=== PATIENT | male | born 1960 | race Caucasian/White ===

== ENCOUNTER 2016-09-14 19:53 | Observation (INO) ==
[2016-09-14] MEDS ORDERED: ASPIRIN PO STA (20:02)
[2016-09-14 20:49] LABS: MANUAL DIFF NEEDED? NO
[2016-09-14 20:52] LABS: BASO% 0.3 % (0.0-0.8); EOS% 0.9 % (0.0-10.0); HEMATOCRIT 45.4 % (42.0-52.0); HEMOGLOBIN 15.6 g/dL (14.0-18.0); IMM GRAN# 0.03 X1000 (0.0-0.04); IMM GRAN% 0.3 % (0.0-0.5); LYMPH# 1.12 X1000 (1.2-3.4); LYMPH% 9.7 % (20.5-51.1); MCH 26.6 PG (27-31); MCHC 34.4 g/dL (33-37); MCV 77.3 FL (81-99); MONO# 0.94 X1000 (0.11-0.59); MONO% 8.1 % (1.7-9.3); MPV 9.2 FL (7.4-10.4); NEUT% 80.7 % (42.2-75.2); PLT 263 X1000 (130-400); RBC 5.87 XMIL (4.7-6.1)
[2016-09-14 21:00] LABS: INR 1.08; PROTIME 11.4 Seconds (9.2-11.7); PTT 26.7 Seconds (22.0-36.0)
[2016-09-14 21:17] LABS: AGAP 21; ALBUMIN 4.5 g/dL (3.5-5.0); ALKALINE PHOSPHATASE 88 U/L (32-122); BUN 23 mg/dL (8-22); CALCIUM 10.5 mg/dL (8.8-10.2); CHLORIDE 101 mmol/L (98-107); CK PROFILE 203 U/L (24-204); COSMO 290; GOT 23 U/L (10-34); GPT 31 U/L (10-44); MAGNESIUM 1.6 mg/dL (1.5-2.7); POTASSIUM 4.3 mmol/L (3.5-5.1); SODIUM 141 mmol/L (136-145); TCO2 19 mmol/L (25-35); TOTAL BILIRUBIN 0.64 mg/dL (0.20-1.00); TOTAL PROTEIN 7.6 g/dL (6.3-8.3)
[2016-09-14 22:49] LABS: ALLEN TEST YES; BE 2.4 mmoll (-3.0-3.0); BLOOD TYPE ARTERIAL; DRAW SITE R RADIAL; METHB 1.6 % (0.0-1.5); MODALITY ROOM AIR; O2(CT) 21.7 mL/dL (15.0-23.0); PCO2(98.6) 23 mmHg (35-45); PO2(98.6) 89 mmHg (60-100); SAMPLE BLOOD
[2016-09-14 22:51] LABS: pH(98.6) 7.59 (7.35-7.45)
[2016-09-14] MEDS ORDERED: NS 1,000 ML IV ONE (23:46)
[2016-09-14] MEDS ORDERED: G.I. COCKTAIL PO ONE (23:46)
[2016-09-14] MEDS ORDERED: DUONEB (A & A) INH ONE (23:48)
[2016-09-15] MEDS ORDERED: TYLENOL PO PRN (01:14)
[2016-09-15] MEDS ORDERED: ZOFRAN IV PRN (01:14)
[2016-09-15] MEDS ORDERED: DUONEB (A & A) INH PRN (01:14)
[2016-09-15 02:15] LABS: HEMOGLOBIN A1C 9.5 % (4.8-6.0)
--- NOTE | 2016-09-15 02:16 | HISTORY AND PHYSICAL ---
PRIMARY CARE PHYSICIAN: Darrick Redmond MD REASON FOR ADMISSION: One-day history of dyspnea, palpitations, lightheadedness. HISTORY OF PRESENT ILLNESS: Mr. Holder is a 56-year-old male with past medical history of coronary artery disease, type 2 diabetes, hypertension, sleep apnea on chronic CPAP, reflux disease, who comes in today complaining of sudden shortness of breath, generalized fatigue, nausea about 2 hours after spraying his yard with weed killer. He says when got in he felt profoundly diaphoretic and he felt palpitations, lightheadedness while resting. He then took a shower, felt better. A few hours later, he went fishing and the same symptoms occurred while he was fishing. These symptoms included nausea, palpitations, lightheadedness, and chest fullness, he says. The chest fullness is not consistent with the chest discomfort he had when he had his IA 5 years ago. When he came home, the symptoms abated for while only to return for the 3rd time and decided to get this checked out. About a week ago, he and his traveled a long distance ride to [place]. He denies any redness or new onset swelling of his lower extremities since their arrival. He denies any sharp pleuritic chest pain. He denies any cough, fever, or chills. No GI symptoms other than 3 loose stools which he has experienced today and the aforementioned nausea, but no vomiting. No abdominal pain. No genitourinary complaints. No neurological complaints. Since he has been here in our ER, he still has generalized weakness. REVIEW OF SYSTEMS: Twelve system review was done and the positive findings were noted in the HPI. ALLERGIES: No known allergies. HOME MEDICATIONS: 1. Victoza 0.6 mg daily. 2. Aspirin 81 mg daily. 3. Ativan 0.5 mg daily. 4. Cozaar 25 mg daily. 5. Metformin 500 mg b.i.d. 6. Toprol-XL 50 mg daily. 7. Protonix 40 mg daily. He reports that he just started taking the metformin and Victoza 3 weeks ago, when he was recently diagnosed by Dr. Redmond, who is his primary care physician. SURGICAL HISTORY: 1. Appendectomy. 2. Back surgery. 3. Shoulder surgery. ALLERGIES: None. FAMILY HISTORY: Notable for type 2 diabetes, heart disease in both parents. Ovarian cancer in his mother. PAST MEDICAL HISTORY: 1. CAD. 2. Sleep apnea. SOCIAL HISTORY: Does not smoke, drink, or use illicit drugs. He is . Lives with his . LABORATORY WORK: White count 11,000, hemoglobin and hematocrit 15 and 45, platelets 263,000 with MCV of 77, neutrophils 80%. BUN 23, creatinine 1.0; glucose 187, calcium 10.5, albumin of 4.5. Troponin is negative. CK 203. Magnesium 1.6. D-dimer is surprising at 0.35. PTT is normal. Blood gas, however, has pH 7.6, pCO2 of 23, pO2 of 81, bicarb of 27 on room air. This was done on room air. EKG did not show any acute injury pattern. Chest film is pending for review. PHYSICAL EXAMINATION: VITAL SIGNS: Blood pressure 174/96, heart rate 94, respirations 24, temperature is 97.5 degrees, O2 saturation 99% on room air. GENERAL: He is morbidly obese, pleasant, man, in no acute distress. He is A and O x3. Normal mood and affect. HEENT: Head is normocephalic, atraumatic. Eyes: PERRL, EOMI. He is anicteric and not pale. ENT and oropharynx exam is grossly normal. No pharyngeal exudates or erythema. No visual central cyanosis was noted. CHEST: Patient has decreased entry in both bases with expiratory wheezes bilaterally in the upper lobes. CARDIOVASCULAR: First and second heart sounds heard. No gallops, rubs. Rhythm is regular. ABDOMEN: Protuberant, soft, nontender. No hepatosplenomegaly. Bowel sounds hypoactive. RECTAL: Deferred at this time. EXTREMITIES: Patient has good pulses distally in all extremities. He has trace edema in his lower extremities. No clubbing or peripheral cyanosis noted. NEUROLOGICAL: No focal deficits. SKIN: Intact. No breakdown, lesions, or edema. MUSCULOSKELETAL: Grossly normal. ASSESSMENT: 1. Generalized weakness with palpitations, dyspnea, and findings consistent with respiratory alkalosis in a morbidly obese man who recently traveled. In this patient, despite his normal D-dimer, I still think his pretest probability is at least moderate. He is also tachycardic. I think it would be prudent to still proceed with doing a CT angiogram to rule out BTE. If this is negative then next plan will be to proceed with a stress test, since he has had one greater than 3 years ago. And if all these are negative, he can be discharged. In the interim, we will continue patient's home medications and add on a statin, which he is not on, nitroglycerin paste for symptom relief if it is ischemic. Also, this may also help lower his blood pressure a bit. 2. Patient has type 2 diabetes. We will hold liraglutide and metformin for now. Consult dietitian to start him on a solid foundation regarding his diet. Patient is motivated to want to lose weight and change his diet. Check A1c, continue with sliding scale. 3. Hypertension. Continue his current blood pressure medications, if still elevated consider elevating his Cozaar from 25-50 mg. 4. Coronary artery disease. Continue aspirin, statins, and beta blockers. Stress test pending. 5. Sleep apnea. Patient uses CPAP at all times, bring it from home. 6. Patient has respiratory alkalosis, highly unusual. I think it is probable that he is very anxious, although he does not portray that. Also, patient may have a very large hiatal hernia which could be causing him to have shallow rapid breaths. Hopefully, a CT angiogram will elucidate the etiology of the rest of the respiratory alkalosis. 7. Other measures include deep venous thrombosis prophylaxis pending CT scan report. cc: MD Darrick Enriquez MD
[2016-09-15 02:28] LABS: AGAP 18; BUN 24 mg/dL (8-22); CALCIUM 10.3 mg/dL (8.8-10.2); CHLORIDE 98 mmol/L (98-107); COSMO 287; POTASSIUM 3.9 mmol/L (3.5-5.1); SODIUM 140 mmol/L (136-145); TCO2 24 mmol/L (25-35)
[2016-09-15] MEDS: LIPITOR PO SCH ×2 (03:16→20:30)
[2016-09-15] MEDS: NITROGLYCERIN TOP SCH ×4 (03:18→20:30)
[2016-09-15] MEDS: LOVENOX SUBQ SCH (03:18)
--- NOTE | 2016-09-15 05:24 | EKG Report ---
Test Performed on : 09/14/2016 8:01:14 PM Test Reason : cp Blood Pressure : / mmHG Vent. Rate : 096 BPM Atrial Rate : 096 BPM P-R Int : 172 ms QRS Dur : 088 ms QT Int : 356 ms P-R-T Axes : 056 -16 054 degrees QTc Int : 449 ms Normal sinus rhythm. Inferior infarct (cited on or before 11-SEP-2011) Abnormal ECG When compared with ECG of 11-SEP-2011 13:45, Vent. rate has increased BY 35 BPM T wave inversion no longer evident in Inferior leads Unconfirmed Result
[2016-09-15] MEDS: PRILOSEC PO SCH (06:16)
[2016-09-15] MEDS: HUMALOG SUBQ SCH ×4 (06:16→22:29)
--- NOTE | 2016-09-15 06:28 | Diag Imaging Result Document ---
PROCEDURE NAME: CHEST-2 VIEWS - 09/14/2016 FRONTAL AND LATERAL CHEST, 2 VIEWS: COMPARISON: 09/11/2011. FINDINGS: The lungs are well expanded. The heart is not enlarged. The vessels are not distended. No pneumonia. No pleural effusions. No free air beneath the diaphragm. IMPRESSION: No acute abnormality.
[2016-09-15] MEDS: ATIVAN PO SCH (08:37)
[2016-09-15] MEDS: ASPIRIN PO SCH (08:37)
[2016-09-15] MEDS: COZAAR PO SCH (08:37)
[2016-09-15] MEDS ORDERED: ASPIRIN PO SCH (09:00)
[2016-09-15] MEDS ORDERED: PANTOPRAZOLE SODIUM 40 MG PO SCH (09:00)
--- NOTE | 2016-09-15 12:12 | PROGRESS NOTE ---
DATE: 09/15/2016 SUBJECTIVE: The patient states that his breathing is okay this morning. I reviewed the history and physical, ER notes, laboratories and all other pertinent findings prior to seeing the patient. It is noted that his pulmonary arteriogram was canceled, which I agree with. He is scheduled to have stress test this afternoon. Enzymes were negative times three. I feel that the patient was in a hyperventilatory loop and this caused all of his symptoms. Hopefully, we can rule out heart issues and we can get him home. The patient's diabetes is improved; his last A1c in the office was 10.1, and he was started on new therapy. He has lost more than 10 pounds over the last month. His appetite is much better. It was also commented in the H and P that the patient was not on a statin drug. The patient has been tried on multiple statin drugs and keeps taking himself off of them because they "bother him." I think he refers to sore joints and muscles, but on his last office visit I gave him samples of Livalo to try, and he again took this for a few days and then quit. So, attempts have been made at a statin drug, but given his coronary history unfortunately the patient is not compliant with that. The patient is scheduled for stress testing this afternoon. I hope to have him discharged either tonight or tomorrow based on those findings. cc: Darrick Redmond MD
[2016-09-15] MEDS ORDERED: LEXISCAN ONE (12:30)
--- NOTE | 2016-09-15 12:55 | ECHO REPORT ---
ORDER DATE: 09/15/2016 MEASUREMENTS: 1. Interventricular septum 1.3. 2. Left ventricular posterior wall 1.3. 3. Diastolic diameter 4.9. 4. Left atrium 4.7. 5. Aorta 3.3. SUMMARY OF 2-D IMAGIN. Normal left ventricular cavity size. Mild left ventricular hypertrophy. Estimated ejection fraction of 65%. 2. Aortic valve leaflets are trileaflet. Mitral valve was normal. Tricuspid valve was normal. Pulmonic valve was normal. 3. Peak velocity across the aortic valve less than 2 m/sec. There is no aortic stenosis or regurgitation. There is trace mitral regurgitation. Trace tricuspid regurgitation. Trace pulmonary regurgitation. Peak velocity across the tricuspid valve was less than 2 m/sec. 4. There is no pericardial effusion or obvious intracardiac mass or thrombus seen. cc: MD Mimi Kyle PA Timothy P. Weirich, MD
--- NOTE | 2016-09-15 13:16 | CONSULTATION ---
DATE OF CONSULTATION: 09/15/2016 INDICATION: Dyspnea. Lightheadedness. HISTORY OF PRESENT ILLNESS: Ms. Holder is a 56-year-old white male with a history of coronary disease with previous PCI. Last seen by Dr. Castillo I believe 2-3 years ago. Yesterday he woke up in his usual state of health. He did some light yard work including his spraying his yard with a pre emergent and post emergent herbicide. He did this via a using a backpack sprayer and did 4 courses of 4 gallons apiece via the backpack sprayer. He thinks that he did okay with this level of activity and does not think that he had any sort of significant exposure. Upon cleaning out the tank he tried to get up but got quite weak and became very short of breath. He recovered after several minutes and decided to go out and do some fishing. Again after he came back in he felt very lightheaded, dizzy, and had some episodic shortness of breath. None of these seemed to be exertional in nature. He had no pain symptoms during the episodes. He reports some limited p.o. intake recently and thinks this is due to new additions of some diabetic medications. He has been eating and drinking but he thinks not as much as usual and has lost 10 pounds recently. He thinks he has maintained oral fluid intake. Again, no chest pain was experienced during any of these episodes. PAST MEDICAL HISTORY: Significant for. 1. Hypertension. 2. Hyperlipidemia but apparent intolerance to statin therapy. 3. Coronary artery disease with previous PCI. 4. Morbid obesity. SOCIAL HISTORY: No current tobacco use or illicit drug use. He is . REVIEW OF SYSTEMS: A 10-system review of systems is negative except for those things mentioned in HPI. FAMILY HISTORY: Significant for type 2 diabetes as well as heart disease. PHYSICAL EXAMINATION: Vital signs: He is afebrile. Heart rate is 73, blood pressure is 112/53. His presenting blood pressure was 174/96. General: He is in no acute distress. Morbidly obese. HEENT: Oropharynx is moist. Normal dentition. His eye examination shows pink conjunctivae. White sclerae. Neck: Examination shows no obvious thyromegaly or thyroid tenderness. Cardiovascular: He sounds to be in a regular rate and rhythm. He has no obvious murmurs. He has no S3 present. No lower extremity edema. No carotid bruits. Chest: Exam sounds clear bilaterally. He has no increased work of breathing. Abdomen: Soft, nontender, nondistended. No obvious organomegaly. Skin Exam: Warm and dry throughout without any rashes. Neurological: Moving all extremities well. Cranial nerves 2-12 are intact without any sensation deficits. Psychiatric: Alert, oriented, pleasant. He has normal mood and affect. PERTINENT DATA: His chest x-ray shows no evidence of any acute infiltrates or significant abnormality. His EKG shows sinus rhythm, rate of 96 beats per minute. I do not see any evidence of previous infarct or current ischemic changes. His laboratory data demonstrates a white count of 11.6, hematocrit 45, platelet count 263,000. INR 1.08. D-dimer is negative. His ABG shows a pH of 7.59, pCO2 23, PO2 is 89. Sodium is 140, potassium 3.9, BUN 24, creatinine 1.1. His magnesium is 1.7. His cardiac enzymes have been negative. His proBNP is normal. LDL is 187. ASSESSMENT: Mr. Holder is a 56-year-old white male who presented with symptoms of shortness of breath and dizziness. PLAN: Certainly seems atypical for a ACS type symptom. Myocardial perfusion imaging is underway. If this is unremarkable, I would likely not pursue this further from a cardiac standpoint as his enzymes have been negative, his BNP is normal and his EKG is unremarkable as well. Certainly, he could have had some hyperventilation as evidenced by the ABG present or it could just be some exposure that he had to the chemical mixture he was spraying on his lawn. His LDL is markedly elevated and given his history of coronary disease and diabetes, he would likely be a candidate for a PCSK9 inhibitor. In addition, he has also had multiple intolerance of statins. I believe this would be the most appropriate course of therapy and should be addressed as an outpatient. I would be happy to see him in consultation to try to initiate this process. cc: MD Darrick Mancini MD
[2016-09-15] MEDS: TOPROL XL PO SCH (14:42)
[2016-09-16] MEDS: NITROGLYCERIN TOP SCH ×3 (04:43→15:31)
[2016-09-16] MEDS: LOVENOX SUBQ SCH (04:44)
[2016-09-16] MEDS: HUMALOG SUBQ SCH ×4 (06:05→15:42)
[2016-09-16] MEDS: PRILOSEC PO SCH (06:13)
[2016-09-16] MEDS: ATIVAN PO SCH (08:38)
[2016-09-16] MEDS: ASPIRIN PO SCH (08:38)
[2016-09-16] MEDS: TOPROL XL PO SCH (08:38)
[2016-09-16] MEDS: COZAAR PO SCH (08:38)
[2016-09-16] MEDS ORDERED: IMODIUM PO ONE (13:47)
--- NOTE | 2016-09-16 15:42 | Diag Imaging Result Document ---
PROCEDURE NAME: MYOCARDIAL PERF SCAN, STR/REST - 09/15/2016 PROCEDURE: Lexiscan sestamibi interpretation. DATE OF STUDY: 09/15/2016. SUMMARY: The patient was administered 15.2 millicuries of technetium-99m sestamibi after which resting cardiac images were obtained. The patient was subsequently stressed using a Lexiscan protocol. Following administration of Lexiscan, the heart rate increased from 71 beats per minute to 92 beats per minute, while the blood pressure went from 129/70 to 137/69. With Lexiscan, the patient denied chest discomfort. Following the administration of Lexiscan, the patient was administered 47.0 millicuries of technetium-99m sestamibi after which gated stress cardiac images were obtained. Baseline ECG demonstrates sinus rhythm. An inferior infarct of undetermined age. With Lexiscan, there were no diagnostic ST-segment changes. SPECT images were reconstructed in the short, horizontal, and vertical long axis. Review of these images demonstrated a [id number] size severe defect uptake in the basal inferolateral region left ventricle on stress images, which appears similar on resting images. No significant reversibility is evident. Review of gated images demonstrates relative hypokinesis of the basal inferolateral region of the left ventricle with calculated left ejection fraction 64%. CONCLUSIONS: 1. Adequate response to Lexiscan. 2. Clinically negative for chest pain. 3. Electrocardiographically, there were no diagnostic ST-segment changes following the administration of Lexiscan. 4. Lexiscan sestamibi images demonstrate non reversible [id number] size severe perfusion defect in the basal inferolateral region, left ventricle, with corresponding hypokinesis suggestive of previous basal inferolateral infarct. There is no convincing scintigraphic evidence of inducible myocardial ischemia. Normal left ventricular ejection fraction demonstrated. cc: MD Manuel Fraser MD
[2016-09-16 15:43] VITALS: BP 119/65
--- NOTE | 2016-09-16 16:22 | PROGRESS NOTE ---
DATE: 09/16/2016 SUBJECTIVE: The patient continues without chest discomfort or dyspnea. OBJECTIVE: Vital Signs: Blood pressure 119/65, heart rate 57 and regular. Neck: There is no significant jugular venous distention. Chest: Clear to auscultation. Cardiac Exam: A regular rate and rhythm without appreciable murmur or gallop. Extremities: There is no evidence of peripheral edema. DIAGNOSTIC TESTS: Lexiscan sestamibi study demonstrates fixed defect in the base of the inferolateral region with corresponding hypokinesis consistent with previous limited sized basal inferolateral infarct. There is no scintigraphic evidence of inducible myocardial ischemia. Left ventricular ejection fraction was normal. IMPRESSION: 1. Atherosclerotic coronary disease. Patient denies history of previous myocardial infarction perhaps 5 years ago followed by angioplasty/stenting. Current myocardial perfusion study demonstrates no evidence of inducible myocardial ischemia and suggests clinical stability. 2. Hypertension. 3. Hyperlipidemia. 4. Morbid obesity. 5. Obstructive sleep apnea. RECOMMENDATIONS: Reasonable for patient to be discharged to continue medical management for coronary atherosclerosis. 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 cc: MD Darrick Fraser MD
--- NOTE | 2016-09-16 23:24 | DISCHARGE SUMMARY ---
ADMISSION DATE: 09/15/2016 DISCHARGE DATE: 09/16/2016 DISCHARGE DIAGNOSES: 1. Chest pain. 2. Hyperventilation syndrome. 3. Ischemic heart disease. 4. Diabetes mellitus with hyperglycemia. 5. Anxiety. 6. Hypertension. HOSPITAL COURSE: This 56-year-old white male was admitted for shortness of breath and chest pain. He is found to have blood gases which clearly showed hyperventilation. The patient was brought to the hospital and ruled out for SC. We did myocardial perfusion scanning with stress and rest images. We had difficulty obtaining the readout from these but Dr. Lara stepped in and read the myocardial perfusion scan and felt that the patient was safe to be discharged. The patient has recently diagnosed with diabetes mellitus and his sugars are improving. Patient has been tried on multiple statins and all of them bother him including Livalo. He may be a candidate for additional agents and we may have to set that up through cardiology. The patient is discharged home in good condition and he will follow up with me next week. cc: Darrick Redmond MD
--- NOTE | 2016-09-20 17:23 | PROVIDER DOCUMENTATION ---
This chart was entered by Celestino Bermeo Scribe, acting as scribe for Danny Kaba MD. HPI-Chest Pain - General Chief Complaint: Chest Pain Stated Complaint: WEAK. DIZZY, NAUSEA, POSS HEART ATTACK Time Seen by Provider: 09/14/16 22:01 Source: patient Allergies/Adverse Reactions: Patient Allergies Allergy/AdvReac Type Severity Reaction Status Date / Time No Known Allergies Allergy Verified 09/14/16 21:12 Home Medications: Home Medication List Medication Instructions Recorded Confirmed Last Taken Type Aspirin 81 mg PO DAILY 09/14/16 09/14/16 09/14/16 History Liraglutide [Victoza] 0.6 mg SUBQ DAILY 09/14/16 09/14/16 09/14/16 History Lorazepam [Ativan] 0.5 mg PO DAILY 09/14/16 09/14/16 09/14/16 History Losartan [Cozaar] 25 mg PO DAILY 09/14/16 09/14/16 09/14/16 History Metformin [Glucophage] 500 mg PO BID CC 09/14/16 09/14/16 09/14/16 History Metoprolol Succinate [Toprol Xl] 50 mg PO DAILY 09/14/16 09/14/16 09/14/16 History Pantoprazole Sodium [Protonix] 40 mg PO DAILY 09/14/16 09/14/16 09/14/16 History - History of Present Illness-CP Nature of Presenting Problem: Pt is a 56 yom who presents to ER with CC of generalized fatigue. Pt reports that he had an CA 5 years ago, and started to develop similar sxs today. Pt reports that he noticed his fatigue developing after he finished spraying weed killer at home (pt did not wear a respirator while spraying). Pt reports that he went on to shower, took his rx, and went fishing, where he noticed his fatigue becoming worse. Pt reports that he was diagnosed with diabetes x3 weeks ago and was taking metformin, but is now taking victosia. Pt also reports that he has lost his appetite and has lost 7 pounds since starting his diabetic rx. Location: reports: central Chest Pain Radiation: reports: no radiation Quality of Pain: reports: none Severity in ED: moderate Onset/Duration: this afternoon Timing: still present Associated Symptoms: reports: diaphoresis, fatigue, heartburn, nausea, shortness of breath, weakness. denies: abdominal pain, back pain, dizziness, edema, fever/chills, headache, rash, swelling/lump in chest, syncope, vomiting Similar Symptoms Previously?: Yes (CA 5 years ago) Recently Seen Here or By Another Healthcare Provider: Yes (diagnosed with diabetes 3 weeks ago) Review of Systems - Adult - REVIEW OF SYSTEMS - ADULT Constitutional: reports: fatique, weight loss. denies: chills, fever, night sweats, weight gain Eyes: reports: no symptoms reported Ears, Nose, Mouth & Throat: reports: no symptoms reported Cardiovascular: reports: palpitations. denies: chest pain, edema, heart murmur , irregular heart rate, orthopnea, poor circulation, PND, syncope Respiratory: reports: shortness of breath. denies: chronic cough, cough, dyspnea on exertion, excessive sputum production, hemoptysis, pleurisy, wheezing Gastrointestinal: reports: diarrhea, nausea, poor appetite. denies: abdominal pain, hematemesis, constipation, difficulty swallowing, frequent heartburn, rectal bleeding, vomiting Genitourinary: reports: no symptoms reported Musculoskeletal: reports: muscle weakness. denies: bone pain, back pain, frequent leg cramps, joint pain, joint swelling, muscle aches, neck pain Integumentary: reports: no symptoms reported Neurological: reports: dizziness/vertigo. denies: ataxia, headache/migraines, loss of balance, numbness, paresthesia, seizure, slurred speech, syncope, tremors Psychiatric: reports: no symptoms reported Endocrine: reports: no symptoms reported Hematologic/Lymphatic: reports: no symptoms reported Allergic/Immunologic: reports: no symptoms reported All Other Systems: Reviewed and Negative Past History - Adult - PAST MEDICAL HISTORY-ADULT Review of Records: reports: Nursing Assessment Review, Medications Reviewed - IMMUNIZATION STATUS Childhood Immunizations: See Nurse Assessment Flu Vaccine: See Nurse Assessment Physical Exam-General - PHYSICAL EXAM-ADULT Initial Vital Signs Reviewed: Yes - CONSTITUTIONAL General Appearance: appears well, alert, moderate distress, obese, anxious. negative: no apparent distress, mild distress - EYES Eyes: PERRL/EOMI, pink conjunctivae, fundi clear, no AV nicking - HEAD, EARS, NOSE, MOUTH & THROAT HENMT: normocephalic/atraumatic, moist mucous membranes, normal ENT inspection, TMs normal, pharynx normal. negative: pharyngeal erythema, tonsillar exudate, TM abnormal - NECK Neck: non-tender, full range of motion, supple, normal inspection. negative: C- spine tenderness, limited range of motion, lymphadenopathy - RESPIRATORY Respiratory: chest non-tender, lungs clear, normal breath sounds, no pleuratic chest pain, no respiratory distress, no accessory muscle use. negative: wheezing - CARDIOVASCULAR Cardiovascular: normal peripheral pulses, regular rate, rhythm. negative: bradycardia, tachycardia, irregularly irregular - GASTROINTESTINAL (ABDOMEN) Abdominal Exam: normal bowel sounds, non tender, soft, no organomegaly, no pulsatile mass. negative: abnormal bowel sounds, distended, tenderness - MUSCULOSKELETAL Extremity: normal range of motion, non-tender, normal gait, normal inspection, no pedal edema, no calf tenderness, normal capillary refill. negative: deformity, erythema, inflammation, swelling, tenderness - SKIN Integumentary: normal color, normal turgor, diaphoresis. 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 negative: facial droop, focal weakness, motor weakness, sensory deficit - PSYCHIATRIC Psych/Mental Status: normal thought content, normal thought process, oriented x 3, anxious, disheveled. negative: normal mood/affect Progress - PLAN OF CARE/RESULTS Progress/Plan/Lab Results: Orders Category Date Time Status Admit - Page Hospital Routine [id number] 09/15/16 01:14 Ordered Cardiac Monitoring DIRECTED Care 09/14/16 20:02 Completed FSBS/Accucheck Result AC + HS Care 09/15/16 01:14 Active Finger Stick Blood Sugar (ED) DIRECTED Care 09/14/16 20:03 Completed Notify MD if DIRECTED Care 09/15/16 01:14 Active Nursing- MD Consult Request ROUTINE Care 09/15/16 01:14 Completed Saline Loc DIRECTED Care 09/15/16 01:14 Completed Vital Signs Order Q 4-HR ASSESS Care 09/15/16 01:14 Hold Dietitian Consult Routine Cons 09/15/16 01:14 Completed Physician/Provider Consults Routine Cons 09/15/16 01:14 Ordered NPO Diet 09/15/16 00:01 Completed CHEST-2 VIEWS [RAD] Stat Exams 09/14/16 20:02 Completed MYOCARDIAL PERF SCAN, STR/REST [NM] Routine Exams 09/15/16 09:00 Completed A1C HGB W EST AVG GLUCOSE [CHEM] Stat Lab 09/15/16 01:50 Completed ABG [RESP] Routine Lab 09/14/16 22:32 Completed BASIC METABOLIC PANEL [CHEM] Routine Lab 09/15/16 01:50 Completed CBC WITH ELECTRONIC DIFF [HEME] Stat Lab 09/14/16 20:25 Completed CK PROFILE [SP CHEM] Stat Lab 09/14/16 20:25 Completed COMPREHENSIVE METABOLIC PANEL [CHEM] Stat Lab 09/14/16 20:25 Completed D-DIMER [CHEM] Stat Lab 09/14/16 20:25 Completed LIPID PROFILE W/DIR LDL [LIPIDS] Routine Lab 09/15/16 01:50 Completed MAGNESIUM [CHEM] Routine Lab 09/15/16 01:50 Completed MAGNESIUM [CHEM] Stat Lab 09/14/16 20:25 Completed PRO B-NATRIURETIC PEPTIDE Stat Lab 09/14/16 20:25 Completed PROTIME WITH INR [COAG] Stat Lab 09/14/16 20:25 Completed PTT [COAG] Stat Lab 09/14/16 20:25 Completed TROPONIN T Q6H Lab 09/15/16 01:50 Completed TROPONIN T Q6H Lab 09/15/16 08:10 Completed TROPONIN T Stat Lab 09/14/16 20:25 Completed 0.9% Sodium Chloride Inj [Ns] 1,000 ml Med 09/14/16 23:46 Discontinued IV 125 mls/hr ATORVAstatin [Lipitor] Med 09/15/16 01:14 Discontinued 40 mg PO QHS Acetaminophen [Tylenol] Med 09/15/16 01:14 Discontinued 650 mg PO Q6H PRN PRN Albuterol 2.5MG/Ipratrop 0.5MG [Duoneb (A & A)] Med 09/14/16 23:48 Discontinued 3 ml INH NOW ONE Albuterol 2.5MG/Ipratrop 0.5MG [Duoneb (A & A)] Med 09/15/16 01:14 Discontinued 3 ml INH Q4H PRN PRN Aspirin Med 09/15/16 09:00 Discontinued 325 mg PO DAILY Aspirin Med 09/14/16 20:02 Discontinued 325 mg PO STAT STA Enoxaparin [Lovenox] Med 09/15/16 01:14 Discontinued 40 mg SUBQ Q24H Insulin Lispro [Humalog] Med 09/15/16 07:00 Discontinued See Protocol SUBQ AC + HS Lido/Henry Alk/Al&mg Hydrox [G.i. Cocktail] Med 09/14/16 23:46 Discontinued 30 ml PO NOW ONE Lorazepam [Ativan] Med 09/15/16 09:00 Discontinued 0.5 mg PO DAILY Losartan [Cozaar] Med 09/15/16 09:00 Discontinued 25 mg PO DAILY Metoprolol Succinate E.r. [Toprol Xl] Med 09/15/16 09:00 Discontinued 50 mg PO DAILY Nitroglycerin Med 09/15/16 01:14 Discontinued 0.5 inch TOP Q6H Omeprazole [Prilosec] Med 09/15/16 07:00 Discontinued 20 mg PO DAILY@0700 Ondansetron [Zofran] Med 09/15/16 01:14 Discontinued 4 mg IV Q4H PRN PRN Aerosol Treatments Routine Oth 09/14/16 23:48 Completed Aerosol Treatments Routine Oth 09/15/16 01:14 Completed Aerosol Treatments Stat Oth 09/14/16 23:48 Completed Aerosol Treatments Stat Oth 09/15/16 01:14 Completed Oxygen Device Routine Oth 09/15/16 01:14 Completed EKG [EKG] Stat Ther 09/14/16 19:57 Draft Transfer/Admit Order [TRANSFER] Routine Transfer 09/14/16 23:40 Completed Result Diagrams: 09/14/16 20:25 09/15/16 01:50 - XRAY 1 XRAY: Bilateral XRAY Study: Chest Impression: See EMR Report XRAY Interpretation: Normal - CONSULTS/PCP/HOSPITALIST Notification #1 *Consult/PCP/Hospitalist*: Dr. Lopez (Hospitalist) Time Discussed: 23:10 Consult Disposition: Admit Departure - Departure Time of Disposition Decision: 23:10 DIAGNOSIS: Respiratory alkalosis Disposition: ADMITTED INPATIENT 09 Certified Medical Emergency: Emergent Condition: Stable - Critical Care Note This patient required my direct personal management.: No This chart was documented by the indicated scribe, (Celestino Bermeo Scribe) and accurately reflects the services I performed and decisions made by me, Danny Kaba MD, as attested by the provider's signature.
--- NOTE | 2016-09-20 17:23 | ED EKG INTERP ---
This chart was entered by Celestino Bermeo Scribe, acting as scribe for Danny Kaba MD. EKG Interpretation - EKG Time of EKG reading by physician:: 20:01 EKG Read and Signed by:: Danny Kaba EKG Interpretation (*Must complete 3 of following elements*): Abnormal ( Inferior infarct, age undetermined) Rate: 96 Rhythm: NSR This chart was documented by the indicated scribe, (Celestino Bermeo Scribe) and accurately reflects the services I performed and decisions made by meSesar Robert H., MD, as attested by the provider's signature.
== END 2016-09-16 17:00 | disposition home or self-care (01) ==
LOC: ED 19:53 → 3S 09-15 00:35 → SUATTDRO 09-15 00:35 → INTOOBSV 09-15 00:35
PROVIDERS: ADMIT Internal Medicine; ATTEND Internal Medicine